=== PATIENT | male | born 1970 | race Caucasian/White ===

== ENCOUNTER 2016-10-10 16:28 | Emergency (ER) | payer MEDICAID, OTHER ==
[~2016-10-10] VITALS: Wt 88.5 kg
--- NOTE | 2016-10-10 16:50 | ERD ---
ER Documentation Chief Complaint Date/Time DATE: 10/10/16 TIME: 16:40 Chief Complaint chicken bone stuck in throat, airway intact HPI 46-year-old male who presents to the emergency department for foreign body to his throat. Stated that last Tuesday, he ate 8 pieces of chicken breasts, accidentally swallowed a chicken bone, and it got stuck to his throat until now. Stated that he tried to eat a lot of banana and pieces of bread but was not relieved of his symptoms. Added that he feels that the chicken bone is on his throat. Reports that he has throat pain whenever he swallows. Denies headache, loss of consciousness, dizziness, blurry vision, changes in vision, photophobia, facial pain, ear pain, difficulty swallowing, shoulder pain , chest pain, cough, hemoptysis, abdominal pain, back pain, loss of appetite, nausea, vomiting, hematochezia, diarrhea, constipation, urinary symptoms, bladder and bowel incontinences, extremity weakness, extremity tenderness, numbness or tingling sensation, difficulty walking, recent travel, recent exposure to illness, recent antibiotic use in the last 3 months, fever, chills. Allergy: No known drug allergies. PMH: Diabetes (stated that he was called by his primary care provider today of his blood works last week and revealed that he has new onset diabetes). Medications: Metformin. Surgery: Denies. Family history: Denies. Primary Social History: [employer]. Denies smoking, use of alcohol, use of illegal drugs. ROS All systems reviewed and are negative except as per history of present illness. Medications Home Meds Active Scripts Ibuprofen* (Motrin*) 800 Mg Tab, 800 MG PO Q8 Y for PAIN AND OR ELEVATED TEMP, # 30 TAB Prov:POLO MARVINAR F 10/10/16 Ondansetron (Ondansetron Odt) 4 Mg Tab.rapdis, 4 MG PO Q6H Y for NAUSEA AND/OR VOMITING, #20 TAB Prov:POLO MARVINAR F 10/10/16 PMhx/Soc History of Surgery: No Anesthesia Reaction: No Hx Neurological Disorder: No Hx Respiratory Disorders: No Hx Cardiac Disorders: Yes (htn) Hx Psychiatric Problems: No Hx Miscellaneous Medical Probl: Yes (dm) Hx Alcohol Use: No Hx Substance Use: No Hx Tobacco Use: No Smoking Status: Never smoker Physical Exam Vitals Vital Signs Date Time Temp Pulse Resp B/P Pulse Ox O2 Delivery O2 Flow Rate FiO2 10/10/16 16:30 98.0 16 131/87 96 Physical Exam CONSTITUTIONAL: Well-appearing; well-nourished; in no apparent distress. HEAD: Normocephalic; atraumatic. EYES: Conjunctiva clear, sclera non-icteric, EOM intact. PERRL Ears: Hearing intact. EACs clear, TMs non-bulging, non-inflamed, translucent & mobile, ossicles normal appearance, No obstructions, no erythema, no discharges Nose: No obstructions. No polyps. No external lesions. Mucosa non-inflamed. No external lesions, septum and turbinates normal. No rhinorrhea. No discharges. Frontal sinus is non-tender to palpation. Maxillary sinus is non-tender to palpation. MOUTH: Moist mucous membranes, no lesion, no obstructions, no vesicles, no thrush, patent airway Throat: Uvula in midline. Right tonsil is +1 with no erythema, no exudate. Left tonsil is +1 with no erythema, no exudate. No drooling. Tolerating secretions well. Good gag reflex. Patent airway. Neck: Supple, without lesions, bruits, or adenopathy. No mass. Thyroid non- enlarged and non-tender to palpation. CHEST: Symmetrical chest. Respirations even and not labored. No retractions noted. CARDIOVASCULAR: Normal S1, S2. RRR. No murmurs, gallops. RESPIRATORY: Normal chest excursion with respiration; breath sounds clear and equal bilaterally; no wheezes, rhonchi, or rales. Breathing even and unlabored. Speaking in clear, full, and complete sentences w/ ease. ABDOMEN: Normal bowel sounds normal. Soft, round, non-distended, non-guarding, no tenderness, no rebound, no organomegaly, no masses, no pulsating abdominal mass. No hernia. No peritoneal signs. : No CVA tenderness. BACK: Symmetrical shoulder. Spine is midline without deformity, tenderness. No evidence of trauma or deformity. PELVIS: Stable pelvis. No evidence of trauma or deformity. MUSCULOSKELETAL: Normal gait and station. No misalignment, asymmetry, crepitation, defects, tenderness, masses, effusions, decreased range of motion, instability, atrophy or abnormal strength or tone in the head, neck, spine, ribs , pelvis or extremities. No calf tenderness. NEUROVASCULAR: Distal pulses are present. Pedal pulse are present, equal, and normal. Capillary refills are < 2 seconds. NEUROLOGIC: Alert and oriented x4. Speaks full and clear sentences. Cranial Nerves II-XII normal. Sensation to pain, touch, and proprioception normal. Grossly unremarkable. No neurologic deficits. Romberg test is negative. PSYCHOLOGICAL: The patients mood and manner are appropriate. No hallucinations , delusions. Not SI. Not HI. Has the capacity to decide for self SKIN: Normal for age and ethnicity; warm; dry; good turgor; no apparent lesions or exudates. No rashes, hives, discoloration. Intact. Procedures/MDM Examination: Please see physical examination. Disease process, medical treatment was explained to the patient and family member. They verbalized understanding and agreed with the diagnostic tests, medical treatment, and follow-up care. Radiology: X-ray of the neck soft tissue Impression: Unremarkable soft tissue neck exam without evidence of radiopaque foreign body. Treatment: P.o. challenge. Re-evaluation: Denies headache, dizziness, blurry vision, neck pain, throat pain , throat tightness, difficulty swallowing, neck stiffness, shoulder pain, chest pain, back pain, difficulty breathing, abdominal pain, nausea, vomiting. Tolerated one cup of water. No episode of emesis here in the emergency department. Respirations even and unlabored. Lung sounds are clear to auscultation. Patent airway. No airway obstruction. Speaks full and clear sentences. There is no right upper/right lower/epigastric/left upper/left lower abdominal tenderness to light and deep palpation. Negative on Rovsing's sign. Negative Vista sign. Able to jump 5 times without developing abdominal pain. No peritoneal signs. No CVA tenderness. No neurovascular deficits. No neurological deficits. Stated that he feels much better and that he is ready to go home. Consultation: None. Differential diagnosis: Foreign body Medical decision makin-year-old male who presents to the emergency department for foreign body to his throat. Stated that last Tuesday, he ate 8 pieces of chicken breasts, accidentally swallowed a chicken bone, and it got stuck to his throat until now. Stated that he tried to eat a lot of banana and in pieces of bread but was not relieved of his symptoms. Added that he feels that the chicken bone is on his throat. Reports that he has throat pain whenever he swallows. Patient's complaint, patient's history about his complaint, my physical findings, diagnostic test results are consistent with my final diagnosis of retained foreign body for throat. Case was discussed with supervising emergency room physician, Dr. Gurwinder Mcgraw who agreed in my medical decision making. Medications prescribed are the following: Motrin. Zofran. Patient and family member are made aware of the side effects and adverse reactions of the medications prescribed. Instructed on when to seek emergent and medical attention in case allergic/anaphylactic reactions or severe side effects and or adverse reactions to medications. Patient and family member verbalized understanding. Patient instructed to: Instructed to follow-up with his PCP in 24-48 hours. Follow-up with ENT in the next 24-48 hours. Instructed to Call 911 for chest pain, shortness of breath. Advised to come back here in ED as soon as possible for severity of symptoms which includes but not limited to: any new symptoms; shortness of breath/difficulty of breathing; cardiovascular changes; severe gastrointestinal symptoms; signs and symptoms of bleeding and or infection; signs of compartment syndrome/neurovascular changes; neurological changes/deficits. Patient and family member verbalized understanding. Upon discharge, patient is alert and oriented x 4, speaks full and clear sentences, denies pain, has no neurological deficits, has no neurovascular deficits, difficulty of breathing. Breathing even and unlabored. Lung sounds are clear to auscultation. Not in distress. Appears comfortable. Ambulatory with steady gait. Appears satisfied with care provided here in ED. Departure Diagnosis: Primary Impression: Retained foreign body Condition: Stable Additional Instructions: Patient instructed to: Instructed to follow-up with his PCP in 24-48 hours. Follow-up with ENT in the next 24-48 hours. Instructed to Call 911 for chest pain, shortness of breath. Advised to come back here in ED as soon as possible for severity of symptoms which includes but not limited to: any new symptoms; shortness of breath/difficulty of breathing; cardiovascular changes; severe gastrointestinal symptoms; signs and symptoms of bleeding and or infection; signs of compartment syndrome/neurovascular changes; neurological changes/deficits. Patient and family member verbalized understanding. SHAHBAZ MARVIN Oct 10, 2016 16:50
--- NOTE | 2016-10-10 17:28 | RADRPT ---
PROCEDURE: Soft tissue neck CLINICAL INDICATION: Foreign body (chicken bone) TECHNIQUE: AP and lateral views of the neck soft tissues are obtained COMPARISON: None available FINDINGS: The hypopharynx is normal in caliber. The epiglottis is unremarkable. The area of the larynx and l aryngeal ventricles is normal. The tracheal airway is unremarkable. The prevertebral soft tissues are within limits of normal. The osseous structures are intact. No radiopaque foreign bodies eviden t. RPTAT:HJJR IMPRESSION: Unremarkable soft tissue neck exam without evidence of radiopaque foreign body. Physician Kendra Date Time Electronically viewed and signed by Physician Kendra on 10/10/2016 17:27 JR/
[2016-10-10] MEDS ORDERED: ONDA4TAB14 PO (17:56)
[2016-10-10] MEDS ORDERED: IBUP800T25 PO (17:56)
== END 2016-10-10 18:30 | disposition home or self-care (01) ==
LOC: FTE 16:28
DX: T17.220A Food in pharynx causing asphyxiation, initial encounter (principal); I10 Essential (primary) hypertension; E11.9 Type 2 diabetes mellitus without complications; X58.XXXA Exposure to other specified factors, initial encounter; Y92.9 Unspecified place or not applicable; Z79.84 Long term (current) use of oral hypoglycemic drugs
CPT/HCPCS: 70360; Z7502

== ENCOUNTER 2017-06-12 10:09 | Emergency (ER) | END 2017-06-12 13:35 | disposition home or self-care (01) ==

== ENCOUNTER 2018-01-11 17:01 | Emergency (ER) | END 2018-01-11 18:20 | disposition home or self-care (01) ==